=== PATIENT | female | born 2005 | race Caucasian/White ===

== ENCOUNTER 2024-09-12 18:59 | Emergency (ER) | payer MEDICAID, OTHER ==
[~2024-09-12] VITALS: Ht 160 cm; Wt 55.4 kg
[~2024-09-12 18:59] MED LIST: NO HOME MEDS
[2024-09-12 19:06] VITALS: BP 103/70; PULSE 90
[2024-09-12 19:42] LABS: STREP A SCREEN NEGATIVE (Neg)
[2024-09-12] MEDS: ketorolac trometh 15mg/ml vial 15 MG/ML ML IM ONE (20:29)
[2024-09-12 21:06] LABS: MONOTEST NEGATIVE (Neg)
[2024-09-12] MEDS: mag hydrox/Alum hydrox/simeth 30ml oral suspension PO ONE (21:58)
[2024-09-12] MEDS: diphenhydrAMINE 25 MG/10 ML UD oral solution PO ONE (21:58)
[2024-09-12] MEDS: LIDOcaine 2% Viscous 15ml cup MM ONE (21:58)
[2024-09-12] MEDS: dexamethasone sod phosphate 10mg/ml inj PO STA (21:58)
[2024-09-12] MEDS ORDERED: [UNRECOGNIZED DRUG - CODE] PO (22:13)
[2024-09-12] MEDS ORDERED: LIDO15SO9 PO (22:13)
[2024-09-12] MEDS ORDERED: MAG355OR18 PO (22:13)
[2024-09-12 22:15] VITALS: RESP 16; TEMP 98.1; O2SAT 100
== END 2024-09-12 22:19 | disposition home or self-care (01) ==
LOC: ER 18:59
DX: B08.5 Enteroviral vesicular pharyngitis (principal); Z79.899 Other long term (current) drug therapy
CPT/HCPCS: 36415; 86308; 87081; 87880; 96372; 99284; J1100; J1885; Q0163